=== PATIENT | female | born 1955 | race Caucasian/White ===

== ENCOUNTER 2016-12-11 04:20 | Day surgery (SDC) | payer BC ==
[2016-12-07 13:16] LABS: HEMATOCRIT 37.7 % (36.0-48.0); HEMOGLOBIN 13.2 g/dL (12.0-16.0)
[2016-12-07 13:31] LABS: BUN (BLOOD UREA NITROGEN) 11 MG/DL (6-23); CALCIUM, SERUM 8.8 MG/DL (8.5-10.4); CHLORIDE, SERUM 106 MMOL/L (96-112); CO2 (CARBON DIOXIDE) 25 MMOL/L (24-34); CREATININE 0.91 MG/DL (0.55-1.02); GFR AFRICAN AMERICAN 78 ML/MIN (>=60); GFR NON AFRICAN AMERICAN 67 ML/MIN (>=60); POTASSIUM, SERUM 3.9 MMOL/L (3.5-5.3); SODIUM, SERUM 139 MMOL/L (135-148)
[2016-12-07 13:32] LABS: GLUCOSE, SERUM 220 MG/DL (60-99)
--- NOTE | ~2016-12-11 | OP ---
Record Of Operation [facility] [address] [place]. [address] NAME: SHANTA MAHER : 51 STATUS : [facility]#: [id number] AGE: 61 ADM/REG DATE : 12/11/16 MR#: [id number] REPORT SERV DATE: 12/13/16 DICTATED BY: HESHAM GOMEZ II DATE: 12/13/16 REPORT STATUS : Draft TRANSCRIBED BY: MODL DATE: 12/13/16 DATE OF PROCEDURE: 12/11/2016 PREOPERATIVE DIAGNOSIS: Coccydynia. POSTOPERATIVE DIAGNOSIS: Coccydynia. PROCEDURE: Coccygectomy. SURGEON: Hesham Gomez M.D. FLUIDS: 1800 mL LR. ESTIMATED BLOOD LOSS: 5 mL. DRAINS: None. COMPLICATIONS: None. ANTIBIOTIC: Preoperatively. COMPLICATIONS: None. PREOPERATIVE HISTORY: This is a very friendly female with coccydynia. She did have a very deformed coccyx with what appeared to be several hypermobile areas. We discussed the rates of success versus failure of the surgery. We discussed the higher incidence of infection and wound dehiscence given its location. We also discussed again the potential for any future surgeries if she had a postop complication. DESCRIPTION OF PROCEDURE: After informed consent was obtained, the patient was brought to the operating room at her request and general anesthesia achieved. She was placed in the prone position. A bump was placed underneath her pelvis. The operative area was isolated from her perineum. The area was again extensively and meticulously prepped and draped. Under loupe magnification and head lamp, a small incision was made to the left of the midline, so as to access a thicker dermis for closure. The very deformed and prominent coccyx was identified and the retractors placed. Subperiosteal exposure was completed. Next, we then used the rongeurs and the high-speed bur to perform the coccygectomy. The hypermobile fragments were now removed. I was pleased with the coccygectomy overall and feel that we had removed a significant amount of the painful area. The area was now irrigated and hemostasis achieved followed by a multilevel layer closure and standard dressings were applied. A meticulous watertight dressing was applied and the patient was then extubated and transferred to PACU in stable condition. Record Of Operation [facility] [address] [place]. [address] NAME: SHANTA MAHER : 51 STATUS : [facility]#: [id number] AGE: 61 ADM/REG DATE : 12/11/16 MR#: [id number] REPORT SERV DATE: 12/13/16 DICTATED BY: HESHAM GOMEZ II DATE: 12/13/16 REPORT STATUS : Draft TRANSCRIBED BY: SIL DATE: 12/13/16 LISA/SIL Hesham Gomez II, M.D. / [id number] CC: Esperanza Ayoub II, VICKY L *
[~2016-12-11 04:20] MED LIST: ADVIL PO; ATEN50 PO; ATV.5 PO; COZAAR100 MG PO; ESTRACE1 MG PO; GLUCPH PO; HYDROCHLOROT12.5 MG PO; MCZ25 PO; PERCOGESIC TAB1 TAB PO; ZOCOR40 PO; ZOL50 PO
[2017-03-31] MEDS ORDERED: V2 PO (10:11)
[2017-03-31] MEDS ORDERED: NORCO1 TA2 PO (10:11)
== END 2016-12-11 11:07 | disposition home or self-care (01) ==
LOC: SDC 04:20
PROVIDERS: Orthopaedic Surgery
PROC: 0QTS0ZZ Resection of Coccyx, Open Approach (ICD-10-PCS; principal; 2016-12-11 05:45)
DX: M53.3 Sacrococcygeal disorders, not elsewhere classified (principal); E11.9 Type 2 diabetes mellitus without complications; R14.0 Abdominal distension (gaseous); K58.9 Irritable bowel syndrome, unspecified; K44.9 Diaphragmatic hernia without obstruction or gangrene; M19.90 Unspecified osteoarthritis, unspecified site; E78.00 Pure hypercholesterolemia, unspecified; I10 Essential (primary) hypertension; Z90.49 Acquired absence of other specified parts of digestive tract; Z98.890 Other specified postprocedural states; Z90.89 Acquired absence of other organs; Z90.710 Acquired absence of both cervix and uterus; Z90.721 Acquired absence of ovaries, unilateral; Z88.1 Allergy status to other antibiotic agents; Z79.899 Other long term (current) drug therapy; Z79.84 Long term (current) use of oral hypoglycemic drugs; Z79.1 Long term (current) use of non-steroidal anti-inflammatories (NSAID)
CPT/HCPCS: 80048; 82962; 85014; 85018; 93005; A9270-GY; J0690; J2250; J2270; J2405; J2710; J3010; J3370